=== PATIENT | female | born 1955 | race Caucasian/White ===

== ENCOUNTER 2016-11-18 16:57 | Inpatient (IN) | payer MEDICARE, OTHER ==
[2016-11-18 18:44] VITALS: BMI 47.5
[2016-11-18 20:09] LABS: Glucose,Whole Blood 131 mg/dL (75-99)
[2016-11-18] MEDS ORDERED: traMADol 50 MG TAB PO PRN ×2 (22:39)
[2016-11-18 23:00] LABS: Anisocytosis Slight; Basophils % (A) 1 %; CH 27.5; CHCM 32.1; Eosinophils # (A) 0.4 k/uL (0-0.7); Eosinophils % (A) 4 %; HCT 39.2 % (34.0-46.0); HDW 3.19; HGB 12.1 gm/dL (11.4-16.0); Hypochromasia Slight; Luc # (Auto) 0.21; Luc % (Auto) 2; Lymphocytes # (A) 1.2 k/uL (1.0-4.8); Lymphocytes % (A) 13 %; MCH 26.6 pg (25.0-35.0); MCHC 30.9 g/dL (31.0-37.0); MCV 86.2 fL (80.0-100.0); Mean Platelet Volume 10.9; Monocytes # (A) 0.6 k/uL (0-1.0); Monocytes % (A) 6 %; Neutrophils # (A) 6.8 k/uL (1.3-7.7); Neutrophils % (A) 73 %; RBC 4.55 m/uL (3.80-5.40); RDW 16.3 % (11.5-15.5); WBC 9.2 k/uL (3.8-10.6); WBC (Perox) 9.87
[2016-11-18] MEDS: HYDROcodone/APAP 5-325MG 1 EACH TAB PO PRN (23:05)
[2016-11-18 23:16] LABS: Anion Gap 9 mmol/L; Blood Urea Nitrogen 22 mg/dL (7-17); Calcium 8.6 mg/dL (8.4-10.2); Carbon Dioxide 26 mmol/L (22-30); Chloride 104 mmol/L (98-107); Glucose 86 mg/dL (74-99); Non-African American GFR(MDRD) >60 (>60 ml/min/1.73 sqM); Sodium 139 mmol/L (137-145)
[2016-11-18] MEDS: FUROSEMIDE 20 MG TAB PO SCH (23:45)
[2016-11-18] MEDS: METOPROLOL TARTRATE 25 MG TAB PO SCH (23:46)
[2016-11-19] MEDS: HYDROcodone/APAP 5-325MG 1 EACH TAB PO PRN ×5 (03:12→20:23)
[2016-11-19] MEDS: FUROSEMIDE 20 MG TAB PO SCH ×3 (07:46→21:52)
[2016-11-19] MEDS: GLIMEPIRIDE 4 MG TAB PO SCH (07:47)
[2016-11-19] MEDS: METOPROLOL TARTRATE 25 MG TAB PO SCH ×2 (07:47→18:23)
[2016-11-19 08:18] LABS: Glucose,Whole Blood 120 mg/dL (75-99)
[2016-11-19] MEDS ORDERED: SPIRONOLACTONE 25 MG TAB PO SCH (09:00)
[2016-11-19 12:00] LABS: Glucose,Whole Blood 179 mg/dL (75-99)
[2016-11-19] MEDS: INSULIN LISPRO (humaLOG) 300 UNIT/3 ML VIAL SQ SCH ×3 (12:04→20:55)
--- NOTE | 2016-11-19 12:23 | HP ---
DATE OF ADMISSION: Patient is a 61-year-old female was sent in here because of extensive ulcerations on bilateral lower limbs and extensive redness extending up to above the bilateral knee area with some localized of temperature. Patient does not have any fever, chills. Patient does have significant skin breakdowns and has chronic venostasis ulcers and patient follows up with the wound care and patient was seen by Dr. Wade and patient's wound cultures during the last admission was polymicrobial including Pseudomonas Enterobacter and enterococcus. Patient was evaluated by Dr. Wade. Patient denied any fever, chills, nausea, vomiting. During her last hospitalization patient was treated for heart failure, although her ejection fraction is essentially within normal limits. Patient does ( ) diastolic dysfunction as well but I cannot completely rule out diastolic dysfunction, although patient has chronic restrictive lung disease, because of which patient uses oxygen 31/05. I will get her off oxygen and see how she saturates. Patient may require oxygen during nighttime, though. Patient may even have sleep apnea, although her right ventricular systolic pressures are essentially within normal limits. Chronic venostasis appears to be secondary to morbid obesity and venous insufficiency. REVIEW OF SYSTEMS: CONSTITUTIONAL: No fever, no malaise, no fatigue. HEENT: No recent visual problems or hearing problems. Denied any sore throat. CARDIOVASCULAR: No chest pain, orthopnea, PND, no palpitations, no syncope. PULMONARY: No shortness of breath, no cough, no hemoptysis. GASTROINTESTINAL: No diarrhea, no nausea, no vomiting, no abdominal pain. Normoactive bowel sounds. NEUROLOGICAL: No headaches, no weakness, no numbness. HEMATOLOGICAL: Denies any bleeding or petechiae. GENITOURINARY: Denies any burning micturition, frequency, or urgency. MUSCULOSKELETAL/RHEUMATOLOGICAL: Denies any joint pain, swelling, or any muscle pain. ENDOCRINE: Denies any polyuria or polydipsia. DERMATOLOGIC: As described in HPI. The rest of the 14 point review of systems is negative. Home medications include: 1. Lasix. 2. Glimepiride. 3. Metoprolol. 4. Spironolactone. 5. Zinc oxide. 6. Tramadol. PAST MEDICAL HISTORY: Significant for questionable diastolic dysfunction, heart failure, type 2 diabetes mellitus, chronic venostasis, dermatosis, hyperlipidemia, hypertension. SURGICAL HISTORY: Cholecystectomy, hernia repair. SOCIAL HISTORY: Denied any smoking, alcohol abuse or any drug abuse. FAMILY HISTORY: Significant for hypertension, myocardial infarction, PHYSICAL EXAMINATION: VITAL SIGNS: Temperature 97.7, pulse of 108, respiratory rate of 20, blood pressure is 104/56, saturating at 96% on 2 L of O2 by nasal cannula. GENERAL EXAMINATION: Morbidly obese female, alert and oriented x3. Not in apparent respiratory distress. HEENT: Pupils are round and equally reacting to light. EOMI. No scleral icterus. No conjunctival pallor. Normocephalic, atraumatic. No pharyngeal erythema. No thyromegaly. CARDIOVASCULAR: S1 and S2 present. No murmurs, rubs, or gallops. PULMONARY: Chest is clear to auscultation, no wheezing or crackles. ABDOMEN: Soft, nontender, nondistended, normoactive bowel sounds. No palpable organomegaly. MUSCULOSKELETAL: No joint swelling or deformity. NEUROLOGICAL: Gross neurological examination did not reveal any focal deficits. SKIN: No rashes. EXTREMITIES: Patient has extensive ulcerations of bilateral lower limbs. Please refer to nursing documentation and Infectious Disease documentation for further details with redness, localized of temperature, chronic venostasis dermatosis. LABORATORY DATA: Abnormal for thrombocytopenia, unknown etiology, because of which I cannot use heparin for prophylaxis at this point of time. ASSESSMENT AND PLAN: 1. Possibility of sleep apnea and restrictive lung disease. 2. Extensive bilateral ulcerations with possible cellulitis. Patient was started on Zosyn and vancomycin. Infectious Disease will be consulted. Wound cultures will be obtained. I believe blood cultures were already obtained. I do not believe patient is bacteremic at this point of time. 3. Tachycardia because of not taking metoprolol, which was ordered. 4. Thrombocytopenia, etiology is unknown, can be evaluated as an outpatient. No signs or symptoms of gastrointestinal bleed at this point of time. 5. Type 2 diabetes mellitus. Patient will be started on Glimepiride and sliding scale insulin as well. Monitor blood sugars. 6. Chronic venostasis dermatosis. 7. Possibility of diastolic dysfunction and heart failure. I cannot rule out at this point of time. Patient is although euvolemic, continue with Lasix, although there is no evidence supporting spironolactone in diastolic dysfunction. 8. Ulcerations of bilateral lower limbs from venostasis. 9. Morbid obesity. Counseling was provided. 10. Restrictive lung disease. Home oxygen management as mentioned above.
[2016-11-19] MEDS: PIPERACILLIN-TAZOBACTAM 3.375 GM in DEXTROSE/WATER 1 50ML.BAG IVPB SCH ×2 (12:32→16:31)
[2016-11-19 12:47] LABS: Hemoglobin A1C 5.2 % (4.2-6.1)
[2016-11-19 17:32] LABS: Glucose,Whole Blood 85 mg/dL (75-99)
[2016-11-19 20:38] LABS: Glucose,Whole Blood 128 mg/dL (75-99)
[2016-11-20] MEDS: HYDROcodone/APAP 5-325MG 1 EACH TAB PO PRN ×5 (00:03→20:51)
[2016-11-20] MEDS: PIPERACILLIN-TAZOBACTAM 3.375 GM in DEXTROSE/WATER 1 50ML.BAG IVPB SCH ×4 (00:04→23:33)
[2016-11-20 07:25] LABS: Glucose,Whole Blood 134 mg/dL (75-99)
[2016-11-20 07:41] LABS: Anisocytosis Slight; CH 27.5; CHCM 31.8; HCT 41.9 % (34.0-46.0); HDW 3.25; Hypochromasia Slight; Mean Platelet Volume 10.3; RBC 4.82 m/uL (3.80-5.40); RDW 16.3 % (11.5-15.5); WBC 7.3 k/uL (3.8-10.6)
[2016-11-20 08:04] LABS: Anion Gap 11 mmol/L; Blood Urea Nitrogen 17 mg/dL (7-17); Calcium 8.5 mg/dL (8.4-10.2); Carbon Dioxide 29 mmol/L (22-30); Chloride 103 mmol/L (98-107); Glucose 135 mg/dL (74-99); Non-African American GFR(MDRD) >60 (>60 ml/min/1.73 sqM); Potassium 3.8 mmol/L (3.5-5.1); Sodium 143 mmol/L (137-145)
[2016-11-20] MEDS: GLIMEPIRIDE 4 MG TAB PO SCH (09:34)
[2016-11-20] MEDS: INSULIN LISPRO (humaLOG) 300 UNIT/3 ML VIAL SQ SCH ×4 (09:35→21:02)
[2016-11-20] MEDS: FUROSEMIDE 20 MG TAB PO SCH ×3 (09:35→20:51)
[2016-11-20] MEDS: METOPROLOL TARTRATE 25 MG TAB PO SCH ×2 (09:35→18:35)
--- NOTE | 2016-11-20 09:41 | CONS ---
DATE OF CONSULTATION: DATE OF SERVICE: 11/19/2016 REASON FOR CONSULTATION: Bilateral lower extremity wound and cellulitis. HISTORY OF PRESENT ILLNESS: The patient is a 61-year-old female with past medical history significant for venostasis ulcer and cellulitis. She was admitted to the [facility] few months ago where the patient was noticed to have excessive cellulitis of left lower extremity. Cultures were positive for pseudomonas as well as enterococcus. Patient after stabilization was discharged on an oral antibiotic. Subsequently the patient did have a follow up in the office and she was noticed to have almost complete healing of the wound. However, the patient now says that the wound has reopened up and has been following with Dr. Dukes in the wound care center along with a home care nurse. The patient was evaluated in the wound care center yesterday where the patient was noticed to have ulceration and drainage from the wound. Hence, she has been told to go to the hospital to be admitted for IV antibiotic therapy. Patient did have some dull pain especially in the left leg, about 3 to 4 out of 10 and no radiation. The patient denies any high-grade fevers or chills. Denies having any chest pain or shortness of breath or cough. No abdominal pain or any diarrhea. She did have CBC, white count normal and no fever has been accorded. The patient has been started on the Zosyn. I was asked to see the patient for further recommendation regarding antibiotic therapy. REVIEW OF SYSTEMS: CONSTITUTIONAL: Positive for weakness, but no fever. EYES: No complaint. ENT: No complaint. RESPIRATORY: No complaint. CARDIOVASCULAR: No complaint. GENITOURINARY: No complaint. GASTROINTESTINAL: No complaint. MUSCULOSKELETAL: No complaint. INTEGUMENTARY: As per HPI. PSYCHOLOGIC: No complaint. ENDOCRINE: No complaint. NEUROLOGIC: No complaint. PAST MEDICAL HISTORY: COPD and diabetes mellitus, hypertension, hyperlipidemia, congestive heart failure. PAST SURGICAL HISTORY: Significant for cholecystectomy, tracheostomy and subsequent removal, cataract surgery and hernia repair. SOCIAL HISTORY: The patient denies smoking, drinking or drug use. FAMILY HISTORY: No pertinent findings noticed. Allergies to METFORMIN, PENICILLIN and NEURONTIN. Medications include the patient is currently on [place], Lasix, Amaryl, Humalog, Lopressor, piperacillin tazobactam, Ultram. On examination, blood pressure is 115/55 with a pulse of 102, temperature 97.4. She does 94% on 2 L nasal cannula. General description is a middle-age female lying in bed in no distress. No tachypnea or accessory muscle of respiratory use. HEENT EXAMINATION: Slight pallor. No scleral icterus. Oral mucous membrane is dry. NECK: Trachea central. There is no thyromegaly. LUNGS: Unlabored breathing. Clear to auscultation anteriorly. HEART: S1, S2. Regular rate and rhythm. ABDOMEN: Soft. No tenderness. EXTREMITIES: Bilateral lower extremities with significant swelling. She did have multiple superficial ulcerations with very minimal erythema, some drainage, but not foul smelling. NEUROLOGICAL: The patient is awake, alert, oriented x3. Mood and affect normal. LABS: Hemoglobin is 12.1, white count 9.2 with a BUN of 22, creatinine 0.52. She has some superficial culture, which is currently pending. DIAGNOSTIC IMPRESSION AND PLAN: Patient with bilateral lower extremity venostasis ulcer with some question of cellulitis. Previous did have a culture positive for pseudomonas and enterococcus. Though clinically I do not see significant cellulitis on today's evaluation, patient is not running any fever and did not have any elevated white count. PLAN: 1. Would recommend local wound care with Aquacel Silver dressing to be applied daily that should absorb most of the drainage. The patient also will benefit from whirlpool therapy elevation, IV Lasix and compression stocking. 2. Will follow up on the clinical condition and cultures to further adjust the medication if needed. Thank you for this consultation. Will follow this patient along with you. RL
[2016-11-20 12:11] LABS: Glucose,Whole Blood 136 mg/dL (75-99)
--- NOTE | 2016-11-20 13:32 | PN ---
The patient is a 61-year-old admitted with bilateral lower limb extensive cellulitis along with extensive skin breakdowns. The patient apparently is noncompliant with medications. Patient is otherwise fairly stable at this point of time. Patient's wound cultures are polymicrobial in nature including gram-negative bacilli, group B enterococcus and Strep agalactiae. Sensitivities are pending. Will continue antibiotics. REVIEW OF SYSTEMS: CARDIOVASCULAR: No chest pain, no orthopnea, no PND, no palpitations. PULMONARY: Denied any shortness of breath. No cough or hemoptysis. GASTROINTESTINAL: No diarrhea, nausea or vomiting. No abdominal pain. Normoactive bowel sounds. NEUROLOGIC: No headaches, no weakness, no numbness. DERMATOLOGIC: As described in HPI. Medications were reviewed. PHYSICAL EXAMINATION: Temperature 97.8, pulse of 92, respiratory rate 20, blood pressure is 112/58, saturating at 96% on 2 L of O2 nasal cannula. PHYSICAL EXAMINATION: GENERAL: The patient is alert and oriented x3, not in any acute distress. Well developed, well nourished. HEENT: Pupils are round and equally reacting to light. EOMI. No scleral icterus. No conjunctival pallor. Normocephalic, atraumatic. No pharyngeal erythema. No thyromegaly. CARDIOVASCULAR: S1 and S2 present. No murmurs, rubs, or gallops. PULMONARY: Chest is clear to auscultation, no wheezing or crackles. ABDOMEN: Soft, nontender, nondistended, normoactive bowel sounds. No palpable organomegaly. MUSCULOSKELETAL: No joint swelling or deformity. EXTREMITIES: As mentioned above. NEUROLOGICAL: Gross neurological examination did not reveal any focal deficits. SKIN: No rashes. ASSESSMENT AND PLAN: 1. Extensive bilateral ulcerations with cellulitis for which patient is on Zosyn and vancomycin, awaiting wound cultures. 2. Hypoxemia with saturations going down secondary to sleep apnea restrictive lung disease with a comment of chronic obstructive pulmonary disease. Patient apparently is requiring oxygen as her saturations dropped today morning and patient is on 2 L of O2. 3. Tachycardia, which is ( ) tachycardia from metoprolol, which improved after starting back on metoprolol. 4. Type 2 diabetes mellitus. 5. Chronic venostasis dermatosis and multiple ulcerations for which patient will need local wound care. 6. Possible diastolic dysfunction and heart failure. Continue with Lasix and patient now mostly has venostasis and ulceration secondary to venostasis. 7. Morbid obesity. 8. Restrictive lung disease as mentioned above. PLAN: Continue with antibiotics. Evaluate for subacute rehabilitation placement. Awaiting wound culture sensitivities so the patient may end up needing IV antibiotics and a PICC line.
[2016-11-20 17:14] LABS: Glucose,Whole Blood 87 mg/dL (75-99)
[2016-11-20 20:35] LABS: Glucose,Whole Blood 145 mg/dL (75-99)
[2016-11-21] MEDS: HYDROcodone/APAP 5-325MG 1 EACH TAB PO PRN ×2 (01:30→08:06)
[2016-11-21 07:29] LABS: Anisocytosis Slight; CH 27.4; CHCM 31.8; HCT 39.9 % (34.0-46.0); HDW 3.22; HGB 12.2 gm/dL (11.4-16.0); Hypochromasia Slight; MCH 26.5 pg (25.0-35.0); MCHC 30.7 g/dL (31.0-37.0); MCV 86.5 fL (80.0-100.0); Mean Platelet Volume 10.1; RBC 4.61 m/uL (3.80-5.40); RDW 16.2 % (11.5-15.5); WBC 7.6 k/uL (3.8-10.6)
[2016-11-21 07:37] LABS: Anion Gap 8 mmol/L; Blood Urea Nitrogen 14 mg/dL (7-17); Calcium 8.5 mg/dL (8.4-10.2); Carbon Dioxide 31 mmol/L (22-30); Chloride 104 mmol/L (98-107); Glucose 121 mg/dL (74-99); Non-African American GFR(MDRD) >60 (>60 ml/min/1.73 sqM); Potassium 3.6 mmol/L (3.5-5.1); Sodium 143 mmol/L (137-145)
[2016-11-21 07:58] LABS: Glucose,Whole Blood 121 mg/dL (75-99)
--- NOTE | 2016-11-21 07:59 | PN ---
DATE OF SERVICE: 11/20/2016 Reason for follow up is bilateral lower extremity venostasis ulcer and cellulitis. INTERVAL HISTORY: The patient is afebrile. The patient did have more shaved of her legs yesterday with significant removal of the desquamative skin. Subsequently, Aquacel silver has been applied, which the patient had been tolerating. Denies any worsening to the leg area. Denies having any chest pain or shortness of breath or cough. On examination, blood pressure is 130/76 with a pulse of 77, temperature 96.9. She is 99% on 4-L nasal cannula. General description is a middle-aged female lying in bed in no distress. RESPIRATORY SYSTEM: Unlabored breathing. Clear to auscultation anteriorly. HEART: S1, S2. Regular rate and rhythm. ABDOMEN: Soft. No tenderness. Bilateral legs currently dressed and no obvious drainage on the dressing. LABS: Hemoglobin is 13, white count 7.3, BUN of 17, creatinine 0.66. Wound culture now showing a gram-negative bacilli and enterococcus. DIAGNOSTIC IMPRESSION AND PLAN: Patient with bilateral lower extremity venostasis ulcer with secondary cellulitis. Wound culture is gram-negative enterococcus. She is currently covered with Zosyn. Will try to get a whirlpool therapy to the legs to remove most of the desquamative skin. Continue local wound care afterwards with Aquacel silver. Discharge antibiotic depends on the culture report. Continue supportive care.
[2016-11-21] MEDS: INSULIN LISPRO (humaLOG) 300 UNIT/3 ML VIAL SQ SCH ×4 (08:01→21:51)
[2016-11-21] MEDS: GLIMEPIRIDE 4 MG TAB PO SCH (08:07)
[2016-11-21] MEDS: METOPROLOL TARTRATE 25 MG TAB PO SCH ×2 (08:07→18:08)
[2016-11-21] MEDS: PIPERACILLIN-TAZOBACTAM 3.375 GM in DEXTROSE/WATER 1 50ML.BAG IVPB SCH ×2 (08:07→16:31)
[2016-11-21] MEDS: FUROSEMIDE 20 MG TAB PO SCH ×3 (08:07→21:51)
[2016-11-21 11:36] LABS: Glucose,Whole Blood 156 mg/dL (75-99)
[2016-11-21] MEDS: HYDROcodone/APAP 10-325MG 1 EACH TAB PO PRN ×3 (12:20→22:40)
--- NOTE | 2016-11-21 12:22 | PN ---
The patient is admitted with bilateral lower limbs cellulitis, skin breakdowns and multiple ulcerations and wounds. Patient is clinically doing well at this point of time. Patient has multiple bacteria including group B streptococci, enterococcus and strep agalactiae in the wounds and patient is on IV antibiotics, which will be continued in the form of Zosyn and vancomycin. We are awaiting ( ). REVIEW OF SYSTEMS: CARDIOVASCULAR: No chest pain, no orthopnea, no PND, no palpitations. PULMONARY: Denied any shortness of breath. No cough or hemoptysis. GASTROINTESTINAL: No diarrhea, nausea or vomiting. No abdominal pain. Normoactive bowel sounds. NEUROLOGIC: No headaches, no weakness, no numbness. EXTREMITIES: As mentioned above. Medications were reviewed. Medication changes none. PHYSICAL EXAMINATION: VITAL SIGNS: Temperature 98.4, pulse of 74, respiratory rate 20, blood pressure is 131/56, saturating at 96% on 3 L O2 nasal cannula. GENERAL: The patient is alert and oriented x3, not in any acute distress. Well developed, well nourished. HEENT: Pupils are round and equally reacting to light. EOMI. No scleral icterus. No conjunctival pallor. Normocephalic, atraumatic. No pharyngeal erythema. No thyromegaly. CARDIOVASCULAR: S1 and S2 present. No murmurs, rubs, or gallops. PULMONARY: Chest is clear to auscultation, no wheezing or crackles. ABDOMEN: Soft, nontender, nondistended, normoactive bowel sounds. No palpable organomegaly. MUSCULOSKELETAL: No joint swelling or deformity. EXTREMITIES: No significant change compared to yesterday. NEUROLOGICAL: Gross neurological examination did not reveal any focal deficits. SKIN: No rashes. LABORATORY DATA: Reviewed. ASSESSMENT AND PLAN: 1. Extensive bilateral ulcerations with cellulitis. Patient is on Zosyn and vancomycin. Wound cultures as mentioned above. Culture sensitivities as mentioned above. 2. Hypoxemia secondary to sleep apnea, restrictive lung disease. 3. Tachycardia, which resolved at this point of time after her restarting her back on metoprolol. 4. Type 2 diabetes mellitus. 5. Chronic venostasis dermatitis. 6. Possibility of diastolic dysfunction without any acute exacerbation. Patient is on oral Lasix, which will be continued. 7. Morbid obesity. 8. Restrictive lung disease due to morbid obesity. 9. Patient has thrombocytopenia unknown etiology, which is mild thrombocytopenia. Considering that patient is not ambulating well since thrombocytopenia improved I will go ahead and start her on heparin subcutaneous.
[2016-11-21] MEDS: HEPARIN SODIUM,PORCINE 5,000 UNIT/ML 1 ML VIAL SQ SCH ×2 (12:23→16:43)
[2016-11-21 17:16] LABS: Glucose,Whole Blood 96 mg/dL (75-99)
[2016-11-21 21:02] LABS: Glucose,Whole Blood 149 mg/dL (75-99)
[2016-11-22] MEDS: PIPERACILLIN-TAZOBACTAM 3.375 GM in DEXTROSE/WATER 1 50ML.BAG IVPB SCH ×3 (01:17→16:12)
[2016-11-22] MEDS: HEPARIN SODIUM,PORCINE 5,000 UNIT/ML 1 ML VIAL SQ SCH ×5 (01:20→16:10)
[2016-11-22] MEDS: HYDROcodone/APAP 10-325MG 1 EACH TAB PO PRN ×4 (05:33→23:28)
[2016-11-22 07:15] LABS: Glucose,Whole Blood 125 mg/dL (75-99)
[2016-11-22] MEDS: INSULIN LISPRO (humaLOG) 300 UNIT/3 ML VIAL SQ SCH ×4 (09:13→21:39)
[2016-11-22] MEDS: FUROSEMIDE 20 MG TAB PO SCH (09:15)
[2016-11-22] MEDS: METOPROLOL TARTRATE 25 MG TAB PO SCH ×2 (09:16→17:19)
[2016-11-22] MEDS: GLIMEPIRIDE 4 MG TAB PO SCH (09:17)
--- NOTE | 2016-11-22 11:22 | XR ---
EXAMINATION TYPE: XR chest 1V DATE OF EXAM: 11/22/2016 10:47 AM COMPARISON: 08/06/2016 HISTORY: 61 year-old female shortness of breath TECHNIQUE: Single frontal view of the chest is obtained. FINDINGS: Heart remains moderately enlarged. Diffuse interstitial and vascular prominence. Some similar mild pa tchy right basilar opacity. IMPRESSION: Correlate for CHF and pulmonary vascular congestion. Some patchy atelectasis or early edema/infiltrat e at the right base.
[2016-11-22 11:52] LABS: Glucose,Whole Blood 141 mg/dL (75-99)
[2016-11-22] MEDS: FUROSEMIDE 10 MG/ML 4 ML VIAL IV SCH ×3 (16:10→21:42)
--- NOTE | 2016-11-22 16:26 | PN ---
The patient is admitted with bilateral lower limbs cellulitis, skin breakdowns and multiple ulcerations and wounds. Patient is clinically doing well at this point of time. Patient has multiple bacteria including group B streptococci, enterococcus and strep agalactiae in the wounds and patient is on IV antibiotics, which will be continued in the form of Zosyn and vancomycin. We are awaiting ( ). REVIEW OF SYSTEMS: CARDIOVASCULAR: No chest pain, no orthopnea, no PND, no palpitations. PULMONARY: Patient is complaining of more shortness of breath because of which I am obtaining a chest x-ray. GASTROINTESTINAL: No diarrhea, nausea or vomiting. No abdominal pain. Normoactive bowel sounds. NEUROLOGIC: No headaches, no weakness, no numbness. EXTREMITIES: As mentioned above. Medications were reviewed. Medication changes none. PHYSICAL EXAMINATION: VITAL SIGNS: Temperature 98.1, pulse of 96, respiratory rate of 20, blood pressure 110/64, saturating at 94% on 3 L of O2 by nasal cannula. GENERAL: The patient is alert and oriented x3, not in any acute distress. Well developed, well nourished. HEENT: Pupils are round and equally reacting to light. EOMI. No scleral icterus. No conjunctival pallor. Normocephalic, atraumatic. No pharyngeal erythema. No thyromegaly. CARDIOVASCULAR: S1 and S2 present. No murmurs, rubs, or gallops. PULMONARY: Chest is clear to auscultation, no wheezing or crackles. ABDOMEN: Soft, nontender, nondistended, normoactive bowel sounds. No palpable organomegaly. MUSCULOSKELETAL: No joint swelling or deformity. EXTREMITIES: No significant change compared to yesterday. NEUROLOGICAL: Gross neurological examination did not reveal any focal deficits. SKIN: No rashes. LABORATORY DATA: Reviewed. ASSESSMENT AND PLAN: 1. Extensive bilateral ulcerations with cellulitis. Patient is on Zosyn and vancomycin. Wound cultures as mentioned above. Culture sensitivities as mentioned above. 2. Hypoxemia secondary to sleep apnea, restrictive lung disease. 3. Tachycardia, which resolved at this point of time after her restarting her back on metoprolol. 4. Type 2 diabetes mellitus. 5. Chronic venostasis dermatitis. 6. Possibility of diastolic dysfunction without any acute exacerbation. Patient is on oral Lasix, which will be continued. 7. Morbid obesity. 8. Restrictive lung disease due to morbid obesity. 9. Patient has thrombocytopenia unknown etiology, which is mild thrombocytopenia. Considering that patient is not ambulating well since thrombocytopenia improved I will go ahead and start her on heparin subcutaneous. 10. Patient's wound cultures are showing Proteus mirabilis and enterococcus faecalis and strep agalactiae. Cultures and sensitivities of organisms are still pending. 11. Increased shortness of breath, probably due to congestive heart failure exacerbation and diastolic dysfunction. Will go ahead and give her Lasix IV.
[2016-11-22 17:11] LABS: Glucose,Whole Blood 119 mg/dL (75-99)
[2016-11-22] MEDS ORDERED: IV VANCOMYCIN PER PHARMACY 1 EACH MISC MISCELLANE PRN (20:19)
[2016-11-22 20:26] LABS: Glucose,Whole Blood 154 mg/dL (75-99)
[2016-11-22] MEDS: VANCOMYCIN 1,750 MG in SODIUM CHLORIDE 0.9% 250 ML IVPB SCH (21:27)
[2016-11-23] MEDS: HEPARIN SODIUM,PORCINE 5,000 UNIT/ML 1 ML VIAL SQ SCH ×3 (00:26→16:10)
[2016-11-23] MEDS: PIPERACILLIN-TAZOBACTAM 3.375 GM in DEXTROSE/WATER 1 50ML.BAG IVPB SCH ×2 (00:27→09:13)
[2016-11-23] MEDS: HYDROcodone/APAP 10-325MG 1 EACH TAB PO PRN ×3 (06:15→19:38)
--- NOTE | 2016-11-23 07:11 | PN ---
DATE OF SERVICE: 11/22/2016 Reason for followup is bilateral lower extremity venostasis ulcer and secondary cellulitis. INTERVAL HISTORY: The patient is afebrile. He did have whirlpool, overall is feeling better. Denies worsening pain in the leg area. Patient denies having any chest pain or shortness of breath or cough. No abdominal pain or any diarrhea. On examination, blood pressure is 100/55 with a pulse of 84, temperature 97.1. She is 96% on 2 L nasal cannula. General description is a middle-age female, lying in bed in no distress. RESPIRATORY SYSTEM: Unlabored breathing. Clear to auscultation. HEART: S1, S2 with regular rate and rhythm. ABDOMEN: Soft, no tenderness. Bilateral leg wound are currently dressed up. No obvious drainage on the dressing. LABS: Wound culture with multiple pathogen including Proteus pseudomonas as well as MRSA. DIAGNOSTIC IMPRESSION AND PLAN: Patient with bilateral lower extremity venostasis ulcer with secondary cellulitis. The patient is current on Zosyn and vanco will be added. The patient will likely need a PICC line and IV antibiotic therapy as an outpatient. Continue local wound care with the Aquacel Silver dressing. Continue supportive care.
[2016-11-23 07:39] LABS: Anion Gap 8 mmol/L; Blood Urea Nitrogen 17 mg/dL (7-17); Calcium 8.7 mg/dL (8.4-10.2); Carbon Dioxide 30 mmol/L (22-30); Chloride 104 mmol/L (98-107); Glucose 107 mg/dL (74-99); Non-African American GFR(MDRD) >60 (>60 ml/min/1.73 sqM); Potassium 3.4 mmol/L (3.5-5.1); Sodium 142 mmol/L (137-145)
[2016-11-23 07:47] LABS: Glucose,Whole Blood 109 mg/dL (75-99)
[2016-11-23] MEDS: INSULIN LISPRO (humaLOG) 300 UNIT/3 ML VIAL SQ SCH ×4 (08:01→21:21)
[2016-11-23] MEDS: METOPROLOL TARTRATE 25 MG TAB PO SCH ×2 (09:12→18:38)
[2016-11-23] MEDS: GLIMEPIRIDE 4 MG TAB PO SCH (09:13)
[2016-11-23] MEDS: FUROSEMIDE 10 MG/ML 4 ML VIAL IV SCH ×2 (09:13→21:21)
[2016-11-23 11:41] LABS: Glucose,Whole Blood 131 mg/dL (75-99)
[2016-11-23] MEDS: VANCOMYCIN 1,750 MG in SODIUM CHLORIDE 0.9% 250 ML IVPB SCH ×2 (11:45→21:21)
--- NOTE | 2016-11-23 11:53 | PN ---
DATE OF SERVICE: 11/23/2016 Reason for followup is bilateral lower extremity venostasis ulcer with secondary cellulitis. INTERVAL HISTORY: The patient is afebrile. Overall pain to the legs seems to be slightly improved. Drainage has decreased. Patient denies having any chest pain or shortness of breath, no cough. No abdominal pain or any diarrhea. On examination, blood pressure 134/54 with a pulse of 74, temperature 97.7. She is 95% on room air. General description is a middle-age female, lying in bed in no distress. RESPIRATORY SYSTEM: Unlabored breathing. Clear to auscultation anteriorly. HEART: S1, S2. Regular rate and rhythm. ABDOMEN: Soft. No tenderness. Bilateral lower extremity overall swelling and redness has improved. No drainage. LABS: BUN of 17, creatinine of 0.62. Wound culture and multiple pathogens. DIAGNOSTIC IMPRESSION AND PLAN: Patient with bilateral lower extremity venostasis ulcer with secondary cellulitis and multiple pathogens, antibiotic of Fortaz and vancomycin for 2 weeks. Aquacel Silver dressing to the legs and a daily therapy. Today removed the desquamatous skin. Continue supportive care.
--- NOTE | 2016-11-23 13:12 | P.DS ---
Providers Date of admission: 11/18/16 17:10 Expected date of discharge: 11/23/16 (Whirlpool daily) Attending physician: MD Dr. Emi Gandhi Consults: 11/19/16 10:51 Consult Physician Routine Consulting Provider: Sreekanth Wade Consult Reason/Comments: Bilatral lower extremity wounds and possible cellulitis Do you want consulting provider notified?: Yes Primary care physician: Cristofer Solis Hospital Course: Final Diagnoses: 1. Extensive lateral ulcerations with cellulitis, multiple pathogens on both Fortaz and vancomycin 2 weeks 2. Hypoxemia secondary to sleep apnea, restrictive lung disease 3. Diabetes mellitus type 2 4. Chronic venostasis dermatitis 5. Possible mild on chronic CHF with diastolic dysfunction 6. Morbid obesity, BMI 44.7 8. Mild thrombocytopenia, etiology unknown, improving 9. PICC line placement 10. Hypokalemia, supplemented. Hospital course: This is a 61-year-old female admitted with extensive lateral ulcerations with cellulitis, chronic venostasis dermatitis and multiple other medical issues. I waited by infectious disease and patient treated with both vancomycin and Fortaz for multiple pathogens per cultures listed below. Patient also presented with mild fluid overload and treated with IV push Lasix. Clinically doing well. PICC line placed and receiving whirlpool treatments daily. Patient is being discharged to [facility] in a stable condition with guarded prognosis, and 2 weeks of IV antibiotics as per ID. Microbiology 11/18/16 23:36 Leg - Left Gram Stain - Final 11/18/16 23:36 Leg - Left Wound Culture - Final Proteus mirabilis Empedobacter (F.) brevis Enterococcus faecalis Strep agalactiae - (group b) Pseudomonas aeruginosa 11/18/16 23:10 Blood Blood Culture - Preliminary No Growth after 96 hours 11/18/16 22:49 Blood Blood Culture - Preliminary No Growth after 96 hours 11/18/16 23:36 Heel - Right Gram Stain - Final 11/18/16 23:36 Heel - Right Wound Culture - Final Proteus mirabilis Pseudomonas aeruginosa Enterococcus faecalis Strep agalactiae - (group b) Methicillin resist S. aureus Patient Condition at Discharge: Stable Plan - Discharge Summary New Discharge Prescriptions: Ceftazidime [Fortaz] 2 gm IV Q8HR #42 vial Furosemide [Lasix] 40 mg PO BID #1 tablet HYDROcodone/APAP 10-325MG [[place] 10-325] 1 each PO Q6H PRN #20 tab PRN Reason: Pain INSULIN LISPRO (HumaLOG) [humaLOG] 0 unit SQ ACHS #1 vial Potassium Chloride ER [K-Dur 20] 20 meq PO DAILY #1 tab Vancomycin 1,500 mg IVPB Q12HR #28 bag Discharge Medication List Metoprolol Tartrate [Lopressor] 25 mg PO BID-W/MEALS 08/06/16 [History] Diabetic Support 1 tab PO DAILY 10/06/16 [History] Glimepiride [Amaryl] 4 mg PO QAM 10/06/16 [History] Vitamin B-12 Drops 1 drop SUBLINGUAL DAILY 11/18/16 [History] Ceftazidime [Fortaz] 2 gm IV Q8HR #42 vial 11/23/16 [Rx] Furosemide [Lasix] 40 mg PO BID #1 tablet 11/23/16 [Rx] HYDROcodone/APAP 10-325MG [[place] 10-325] 1 each PO Q6H PRN #20 tab 11/23/16 [Rx] INSULIN LISPRO (HumaLOG) [humaLOG] 0 unit SQ ACHS #1 vial 11/23/16 [Rx] Potassium Chloride ER [K-Dur 20] 20 meq PO DAILY #1 tab 11/23/16 [Rx] Vancomycin 1,500 mg IVPB Q12HR #28 bag 11/23/16 [Rx] Follow up Appointment(s)/Referral(s): Cristofer Solis III, MD [Primary Care Provider] - 1 Week (After DC from [facility]) Alexy Rebolledo MD [REFERRING] - 1 Week (While at [facility]) Sreekanth Wade MD [STAFF PHYSICIAN] - 1 Week Activity/Diet/Wound Care/Special Instructions: [facility] magnesium level pending. PICC line placement pending, antibiotics/wound care as per ID. [facility] daily Diet: Cardiac, consistent carb Accu-Cheks before meals and at bedtime Activity: As tolerated concerned home care - CBC BMP in 3 days, Weekly labs as per ID
[2016-11-23] MEDS: POTASSIUM CHLORIDE ER 20 MEQ TAB.ER PO SCH ×2 (13:48→15:22)
[2016-11-23 17:16] LABS: Glucose,Whole Blood 141 mg/dL (75-99)
[2016-11-23 17:57] VITALS: RESP 16
[2016-11-23 20:13] LABS: Glucose,Whole Blood 124 mg/dL (75-99)
[2016-11-24] MEDS: HEPARIN SODIUM,PORCINE 5,000 UNIT/ML 1 ML VIAL SQ SCH ×2 (00:11→08:35)
[2016-11-24] MEDS: HYDROcodone/APAP 10-325MG 1 EACH TAB PO PRN ×4 (02:56→18:28)
[2016-11-24 06:09] VITALS: BP 115/56; PULSE 83; TEMP 97.5
[2016-11-24] MEDS ORDERED: VANCOMYCIN TROUGH DUE 1 EACH MISC MISCELLANE ONE (08:00)
[2016-11-24 08:17] LABS: Glucose,Whole Blood 115 mg/dL (75-99)
[2016-11-24] MEDS: INSULIN LISPRO (humaLOG) 300 UNIT/3 ML VIAL SQ SCH ×2 (08:21→13:10)
[2016-11-24 08:29] LABS: Anion Gap 7 mmol/L; Blood Urea Nitrogen 14 mg/dL (7-17); Calcium 8.6 mg/dL (8.4-10.2); Carbon Dioxide 31 mmol/L (22-30); Chloride 105 mmol/L (98-107); Glucose 110 mg/dL (74-99); Non-African American GFR(MDRD) >60 (>60 ml/min/1.73 sqM); Potassium 3.8 mmol/L (3.5-5.1); Sodium 143 mmol/L (137-145)
[2016-11-24] MEDS: METOPROLOL TARTRATE 25 MG TAB PO SCH (08:34)
[2016-11-24] MEDS: FUROSEMIDE 10 MG/ML 4 ML VIAL IV SCH (08:36)
[2016-11-24] MEDS: GLIMEPIRIDE 4 MG TAB PO SCH (08:37)
--- NOTE | 2016-11-24 11:21 | PN ---
DATE OF SERVICE: 11/24/2016 Reason for followup is bilateral lower extremity venostasis ulcer with secondary cellulitis. INTERVAL HISTORY: The patient is afebrile. She is currently waiting for placement. The patient denies having any chest pain, some cough. No abdominal pain. Denies any pain in her legs. On examination, blood pressure is 115/56 with a pulse of 83, temperature 97.5. She is 94% on 3 L nasal cannula. General description is a middle-age female lying in bed in no distress. RESPIRATORY SYSTEM: Unlabored breathing. Clear to auscultation anteriorly. HEART: S1, S2. Regular rate and rhythm. ABDOMEN: Soft. No tenderness. Bilateral leg wounds currently dressed and no obvious drainage to the dressing. LABS: BUN of 14, creatinine 0.60. DIAGNOSTIC IMPRESSION AND PLAN: Patient with bilateral lower extremity venostasis ulcer with secondary cellulitis. Culture with multiple pathogens, currently on vancomycin and Fortaz that she will continue for 2 weeks along with local wound care with whirlpool therapy followed by Aquacel Silver dressing.
[2016-11-24 13:02] LABS: Glucose,Whole Blood 102 mg/dL (75-99)
[2016-11-24] MEDS ORDERED: LIDOCAINE 2% INJ 20 MG/ML SQ ONE (13:39)
[2016-11-24] MEDS: VANCOMYCIN 1,750 MG in SODIUM CHLORIDE 0.9% 250 ML IVPB SCH (15:05)
--- NOTE | 2016-11-24 15:30 | IR ---
EXAMINATION TYPE: IR cvc insert >=5 years DATE OF EXAM: 11/24/2016 2:14 PM COMPARISON: NONE CLINICAL HISTORY: Infection Needs long-term intravenous access for antibiotics. PROCEDURE: After informed consent, the skin overlying the left cephalic vein was localized with ultrasound and n oted to be compressible and patent. An ultrasound image was obtained and submitted on the patient's chart. The overlying skin was prepped and draped and Lidocaine was used for local anesthesia. A ski n mariah was made with a scalpel. Access was gained to the vein under ultrasound guidance with a 21 ga uge needle and a 0.018 inch wire was advanced. Access site was dilated with Peel-Away sheath and cat heter tailored to the appropriate length and advanced such that the distal tip is at the cavoatrial j unction. Spot image was obtained verifying placement. Catheter was fixed to the skin with suture an d a sterile dressing was placed following hemostasis. Catheter was aspirated and flushed with saline . Patient was discharged in stable condition without complication.Maximal barrier technique is utili zed. Ultrasound image is documented on the chart. Ultrasound used with sterile technique. Fluoro time and fluoroscopic images submitted to document procedure: 3.8 minutes fluoroscopy time, 47 intraoperative C-arm images document the procedure IMPRESSION: STATUS POST ULTRASOUND AND FLUOROSCOPIC GUIDED PICC LINE PLACEMENT, READY FOR USE. THIS PROCEDURE WAS PERFORMED BY THE UNDERSIGNED.
--- NOTE | 2016-11-24 17:16 | P.PN ---
Subjective Date of service 11/23/2016 Progress note being dictated for Dr. Middleton Interval history: This is a 61-year-old female admitted with extensive lateral ulcerations with cellulitis, chronic venostasis dermatitis and multiple other medical issues. Evaluated by infectious disease, maintained on both vancomycin and Fortaz for multiple pathogens per cultures listed below. Patient also presented with mild fluid overload and treated with IV push Lasix. Clinically doing well. PICC line placement pending. Receiving whirlpool treatments daily. Patient is being discharged to [facility] after PICC line placement. Objective - Vital Signs Vital signs: Vital Signs Temp 97.5 F L 11/24/16 06:08 Pulse 83 11/24/16 06:08 Resp 16 11/24/16 16:00 BP 115/56 11/24/16 06:08 Pulse Ox 94 L 11/24/16 06:08 Intake & Output 11/23/16 11/24/16 11/24/16 18:59 06:59 18:59 Intake Total 300 1320 200 Balance 300 1320 200 Weight 118 kg Intake: IV 50 Piperacillin-Tazobactam 3 50 .375 gm In Dextrose/Water 1 50ml.bag @ 12.5 mls/hr IVPB Q8HR [facility] Rx#: [id number] Intake, IV Titration 250 Amount Vancomycin 1,750 mg In 250 Sodium Chloride 0.9% 250 ml @ 125 mls/hr IVPB Q12HR OLEGARIO Rx#:[id number] Oral 1320 200 Other: Voiding Method Toilet Toilet Toilet # Voids 3 2 - Exam PHYSICAL EXAM: VITAL SIGNS: Temperature 97.5 Fahrenheit oral, pulse 74, wrist rate 18, blood pressure 134/64, O2 sat 95% on room air GENERAL: [Sitting up in bed, no acute distress] HEENT: [Pupils equal conjunctiva normal.] NECK: [Supple, no JVD] RESPIRATORY EFFORT:[Normal] LUNGS: [Diminished, no wheezing, no crackles] CARDIOVASCULAR[regular S1 and S2, mild edema] GI: [Abdomen soft, nontender, positive bowel sounds.] PSYCH: [Alert and oriented -3, mood and affect normal.] SKIN: Bilateral dressings clean dry and intact NEURO: Gross neuro logical examination did not reveal any focal deficits Microbiology 11/18/16 23:10 Blood Blood Culture - Preliminary No Growth after 120 hours 11/18/16 22:49 Blood Blood Culture - Preliminary No Growth after 120 hours 11/18/16 23:36 Leg - Left Gram Stain - Final 11/18/16 23:36 Leg - Left Wound Culture - Final Proteus mirabilis Empedobacter (F.) brevis Enterococcus faecalis Strep agalactiae - (group b) Pseudomonas aeruginosa 11/18/16 23:36 Heel - Right Gram Stain - Final 11/18/16 23:36 Heel - Right Wound Culture - Final Proteus mirabilis Pseudomonas aeruginosa Enterococcus faecalis Strep agalactiae - (group b) Methicillin resist S. aureus - Labs CBC & Chem 7: 11/21/16 06:52 11/24/16 07:30 Labs: Abnormal Lab Results - Last 24 Hours (Table) 11/23/16 11/23/16 11/24/16 Range/Units 17:10 20:10 07:30 Carbon Dioxide 31 H (22-30) mmol/L Glucose 110 H (74-99) mg/dL POC Glucose (mg/dL) 141 H 124 H (75-99) mg/dL 11/24/16 11/24/16 Range/Units 07:57 12:52 Carbon Dioxide (22-30) mmol/L Glucose (74-99) mg/dL POC Glucose (mg/dL) 115 H 102 H (75-99) mg/dL Microbiology - Last 24 Hours (Table) 11/18/16 23:10 Blood Culture - Preliminary Blood No Growth after 120 hours 11/18/16 22:49 Blood Culture - Preliminary Blood No Growth after 120 hours Assessment and Plan Plan: 1. Extensive lateral ulcerations with cellulitis, multiple pathogens on both Fortaz and vancomycin 2 weeks 2. Hypoxemia secondary to sleep apnea, restrictive lung disease 3. Diabetes mellitus type 2 4. Chronic venostasis dermatitis 5. Possible mild on chronic CHF with diastolic dysfunction 6. Morbid obesity, BMI 44.7 8. Mild thrombocytopenia, etiology unknown, improving 9. PICC line placement 10. Hypokalemia, supplemented. Plan: Continue on current medication regime ,monitoring and symptomatic treatment. Awaiting PICC line placement followed by discharge to [facility] rehab. Per infectious disease patient to receive IV antibiotics as ordered for another 2 weeks. Whirlpool treatments as per ID.
[2016-11-24] MEDS ORDERED: POTASSIUM CHLORIDE ER 20 MEQ TAB.ER PO STA (17:29)
[2016-11-25] MEDS ORDERED: VANCOMYCIN 1,750 MG in SODIUM CHLORIDE 0.9% 250 ML IVPB SCH (05:00)
== END 2016-11-24 19:00 | DRG 602 ==
LOC: 5MS5E 17:10
PROVIDERS: ADMIT Internal Medicine; ATTEND Internal Medicine
PROC: 02HV33Z Insertion of Infusion Device into Superior Vena Cava, Percutaneous Approach (ICD-10-PCS; principal; 2016-11-24 13:20)
DX: L03.116 Cellulitis of left lower limb (principal); I50.33 Acute on chronic diastolic (congestive) heart failure; D69.6 Thrombocytopenia, unspecified; Z99.81 Dependence on supplemental oxygen; L97.819 Non-pressure chronic ulcer of other part of right lower leg with unspecified severity; L97.829 Non-pressure chronic ulcer of other part of left lower leg with unspecified severity; Z68.41 Body mass index [BMI] 40.0-44.9, adult; I83.208 Varicose veins of unspecified lower extremity with both ulcer of other part of lower extremity and inflammation; E66.01 Morbid (severe) obesity due to excess calories; L03.115 Cellulitis of right lower limb; J44.9 Chronic obstructive pulmonary disease, unspecified; R09.02 Hypoxemia; E11.9 Type 2 diabetes mellitus without complications; R00.0 Tachycardia, unspecified; T44.7X6A Underdosing of beta-adrenoreceptor antagonists, initial encounter; E87.6 Hypokalemia; J98.4 Other disorders of lung; I11.0 Hypertensive heart disease with heart failure; E78.5 Hyperlipidemia, unspecified; G47.30 Sleep apnea, unspecified; B96.4 Proteus (mirabilis) (morganii) as the cause of diseases classified elsewhere; B96.5 Pseudomonas (aeruginosa) (mallei) (pseudomallei) as the cause of diseases classified elsewhere; B95.2 Enterococcus as the cause of diseases classified elsewhere; B95.62 Methicillin resistant Staphylococcus aureus infection as the cause of diseases classified elsewhere; R53.1 Weakness; Z88.8 Allergy status to other drugs, medicaments and biological substances; Z90.49 Acquired absence of other specified parts of digestive tract; Z79.84 Long term (current) use of oral hypoglycemic drugs; Z79.891 Long term (current) use of opiate analgesic; Z82.49 Family history of ischemic heart disease and other diseases of the circulatory system; Z79.899 Other long term (current) drug therapy; Z91.14 Patient's other noncompliance with medication regimen; Z71.3 Dietary counseling and surveillance
CPT/HCPCS: 36569; 71010; 76937; 77001; 80048; 80202; 83036; 83735; 85025; 85027; 87040; 87070; 87077; 87186; 87205; 99213